=== PATIENT | female | born 1985 | race Caucasian/White ===

== ENCOUNTER → 2016-08-16 | Outpatient (CLI) | payer BC ==
[~2016-08-16] MED LIST: BIRTH CONTROL; TRAM50TA2 PO
== END ==
LOC: LAB 14:23
PROVIDERS: ATTEND Obstetrics & Gynecology
DX: Z32.01 Encounter for pregnancy test, result positive (principal)
CPT/HCPCS: 36415; 84144; 84702

== ENCOUNTER → 2016-12-03 | Outpatient (CLI) | payer BC ==
--- NOTE | 2016-12-03 12:48 | Diagnostic Imaging Report ---
OB ultrasound. INDICATION: survey. Findings: heart rate is 135 beats per minute. The placenta is posterior. There is no placenta previa. survey demonstrate unremarkable appearance of the spine, no ventriculomegaly, the urinary bladder appears unremarkable. The four-chamber view appears unremarkable. There is suggestion of 2 umbilical arteries around the urinary bladder. The stomach appear normal. Cord insertion is not seen. There is no hydronephrosis or cystic mass at the level of the kidney. The cervix demonstrates minimal amount of fluid in its proximal aspect within the endocervical canal, otherwise the cervix appears to be closed. It is 4 CM in length. The growth parameters are: Biparietal diameter: 20 weeks 2 days Head circumference: 20 weeks 3 days Abdominal circumference: 20 week 5 day Femur length: 21 week and 3 days These average at: 20 weeks and 5 days This is within normal limits for gestational age of 21 weeks and 4 days based on assigned TONY of 04/11/2017 by first trimester ultrasound reportedly provided Impression: 1. The cord insertion is not seen. Followup study within 2 weeks to reevaluate is recommended. 2. Tiny amount of fluid is seen in the endocervix. The cervix however remains closed. Reassessment on followup is recommended. Dictated by: Dictated on workstation # [id number]
== END ==
LOC: RAD 09:47
PROVIDERS: ATTEND Obstetrics & Gynecology
DX: Z36 Encounter for antenatal screening of mother (principal); Z3A.20 20 weeks gestation of pregnancy
CPT/HCPCS: 76805

== ENCOUNTER → 2017-01-14 | Outpatient (CLI) | payer BC ==
--- NOTE | 2017-01-14 14:47 | Diagnostic Imaging Report ---
INDICATION: Incomplete survey. Re-evaluate cord insertion. TECHNIQUE: Multiple real-time grayscale images were obtained over the gravid uterus. COMPARISON: 12/03/2016. FINDINGS: The heart rate is 133 BPM. The placenta is posterior with no placenta previa. The cord insertion is still not well seen. Adequate amniotic fluid is noted. The transvaginal view demonstrates a cervical length of 4 cm. The cervix is closed. IMPRESSION: Unfortunately, the cord insertion is still not well seen. Dictated by: Dictated on workstation # [id number]
== END ==
LOC: RAD 10:16
PROVIDERS: ATTEND Obstetrics & Gynecology
DX: Z36 Encounter for antenatal screening of mother (principal)
CPT/HCPCS: 76816

== ENCOUNTER 2017-04-10 03:00 | Inpatient (IN) | payer MEDICAID ==
[2017-04-10] VITALS (42 sets, daily range): BP systolic 96–158; BP diastolic 57–90
[~2017-04-10] VITALS: Ht 160 cm; Wt 86.8 kg
[2017-04-10] MEDS ORDERED: AMPICILLIN INJECTION 2,000 MG in NS (IVPB) 50 ML IV SCH (03:32)
[2017-04-10] MEDS ORDERED: NS (IVPB) 50 ML ONE (03:37)
[2017-04-10] MEDS ORDERED: AMPICILLIN 2000 MG INJECTION (IM/IV) ONE (03:37)
[2017-04-10 03:39] LABS: PH,URINE 6.5 (5-9)
[2017-04-10 03:40] LABS: BILIRUBIN,URINE NEGATIVE (NEGATIVE); KETONES,URINE NEGATIVE (NEGATIVE); LEUKOCYTE ESTERASE ,URINE 3+ (NEGATIVE); NITRITE,URINE NEGATIVE (NEGATIVE); PROTEIN,URINE NEGATIVE (NEGATIVE); UROBILINOGEN,URINE NORMAL (NORMAL)
[2017-04-10] MEDS: D5 LR IV SOLUTION 1,000 ML IV SCH ×3 (03:48→23:32)
[2017-04-10 03:59] LABS: BASOPHILS % (AUTO) 0 % (0-10); EOSINOPHILS % (AUTO) 0 % (0-10); LYMPHOCYTES # (AUTO) 2.4 X 10^3 (1.0-4.0); LYMPHOCYTES % (AUTO) 30 % (12-44); MEAN CORPUSCULAR HEMOGLOBIN 27 PG (25-34); MEAN CORPUSCULAR HGB CONC 32 G/DL (32-36); MEAN CORPUSCULAR VOLUME 83 FL (80-99); MEAN PLATELET VOLUME 10.1 FL (7.4-10.4); MONOCYTES # (AUTO) 0.7 X 10^3 (0.0-1.0); MONOCYTES % (AUTO) 9 % (0-12); NEUTROPHILS # (AUTO) 4.9 X 10^3 (1.8-7.8); NEUTROPHILS % (AUTO) 61 % (42-75); PLATELET COUNT 286 10^3/uL (130-400); RED BLOOD COUNT 3.76 10^6/uL (4.35-5.85); RED CELL DISTRIBUTION WIDTH 13.9 % (10.0-14.5); WHITE BLOOD COUNT 8.1 10^3/uL (4.3-11.0)
[2017-04-10] MEDS ORDERED: FAMO-119 PO (05:48)
[2017-04-10] MEDS ORDERED: DOCO200C4 PO (05:48)
[2017-04-10] MEDS: AMPICILLIN INJECTION 1,000 MG in NS (IVPB) 50 ML IV SCH ×2 (08:31→12:15)
[2017-04-10] MEDS ORDERED: LACTATED RINGERS 1,000 ML IV ONE (08:38)
[2017-04-10] MEDS ORDERED: SUFENTA 0.6MCG/ML BUPIVA 0.125 100 ML ONE (08:38)
--- NOTE | 2017-04-10 09:27 | History & Physical-OB ---
OB - Chief Complaint & HPI Date/Time Date of Admission: Date of Admission: Apr 10, 2017 at 8:47 am Time Seen by Provider: 08:35 Chief Complaint/History OB-Reason for Admission/Chief: Onset of Labor Hx : 1 Hx Para: 0 Expected Date of Delivery: Apr 11, 2017 Gestational Age in Weeks: 39 Gestational Age in Days: 6 Admission Nurse Assessment Rev: Yes History of Labs A pos Antibody neg RI RPR NR HBsAg NR HIV NR GC neg GBS pos Allergies and Home Medications Allergies Coded Allergies: No Known Drug Allergies (Unverified , 04/10/17) Home Medications Docosahexanoic Acid 200 Mg Capsule, 200 MG PO DAILY, (Reported) Famotidine 20 Mg Tablet, 20 MG PO BID, (Reported) OB - History Hx of Present Care: Yes Ultrasounds: Normal mid trimester US Obstetrical Complications: None Medical Complications: None Obstetrical History Hx : 1 Delivery History Hx Blood Disorders: No Patient Past Medical History n/a Social History/Family History Recent Infectious Disease Expo: No Immunizations Tetanus Booster (TDap): More than 5yrs OB - Admission Exam Physical Exam Date Seen by Provider: Apr 10, 2017 Time Seen by Provider: 08:45 Vitals: Vital Signs 04/10/17 03:20 Temp 97.5 Pulse 93 Resp 16 B/P (MAP) 120/82 O2 Delivery Room Air HEENT: NCAT Heart: Rhythm Normal Lungs: Clear Abdomen: Gravid Extremities: Normal Reflexes: Normal Cervical Dilatation: 4cm Effacement: 100% Station: -1 Membranes: Intact Heart Rate: 130's Accelerations: Accelerations Present Decelerations: No Decelerations Short Term Variability: Present Human Resource Adviser Variability: Average (6-25) Contractions on Admission: < 5 Minutes Apart Intensity: Moderate Labs Laboratory Tests Test 04/10/17 03:10 04/10/17 03:40 Range/Units Urine Color YELLOW Urine Clarity CLEAR Urine pH 6.5 5-9 Urine Specific [place]roid 1.005 L 1.016-1.022 Urine Protein NEGATIVE NEGATIVE Urine Glucose (UA) NEGATIVE NEGATIVE Urine Ketones NEGATIVE NEGATIVE Urine Nitrite NEGATIVE NEGATIVE Urine Bilirubin NEGATIVE NEGATIVE Urine Urobilinogen NORMAL NORMAL MG/DL Urine Leukocyte Esterase 3+ H NEGATIVE Urine RBC (Auto) 1+ H NEGATIVE Urine RBC 2-5 H /HPF Urine WBC 10-25 H /HPF Urine Squamous Epithelial Cells 2-5 /HPF Urine Crystals NONE /LPF Urine Bacteria TRACE /HPF Urine Casts NONE /LPF Urine Mucus NEGATIVE /LPF Urine Culture Indicated YES White Blood Count 8.1 4.3-11.0 10^3/uL Red Blood Count 3.76 L 4.35-5.85 10^6/uL Hemoglobin 10.0 L 11.5-16.0 G/DL Hematocrit 31 L 35-52 % Mean Corpuscular Volume 83 80-99 FL Mean Corpuscular Hemoglobin 27 25-34 PG Mean Corpuscular Hemoglobin Concent 32 32-36 G/DL Red Cell Distribution Width 13.9 10.0-14.5 % Platelet Count 286 130-400 10^3/uL Mean Platelet Volume 10.1 7.4-10.4 FL Neutrophils (%) (Auto) 61 42-75 % Lymphocytes (%) (Auto) 30 12-44 % Monocytes (%) (Auto) 9 0-12 % Eosinophils (%) (Auto) 0 0-10 % Basophils (%) (Auto) 0 0-10 % Neutrophils # (Auto) 4.9 1.8-7.8 X 10^3 Lymphocytes # (Auto) 2.4 1.0-4.0 X 10^3 Monocytes # (Auto) 0.7 0.0-1.0 X 10^3 Eosinophils # (Auto) 0.0 0.0-0.3 10^3/uL Basophils # (Auto) 0.0 0.0-0.1 10^3/uL OB - Assessment/Plan/Diagnosis Assessment Assessment: active labor Plan Plan: Expectant Management Other Plan Plan for AROM, pitocin if needed. Patient to have epidural at her discretion Discharge Diagnosis Diagnosis: 31 yo @ 39.6 Active labor GBS + JULIOSTORM Apr 10, 2017 9:27 am
[2017-04-10] MEDS ORDERED: LACTATED RINGERS 1,000 ML IV SCH (09:43)
[2017-04-10] MEDS ORDERED: diphenhydrAMINE 50 MG/ML INJ (BENADRYL) IV PRN (09:45)
[2017-04-10] MEDS ORDERED: ONDANSETRON 4 MG/2 ML (SDV) Z0FRAN IV PRN (09:45)
[2017-04-10] MEDS ORDERED: METOCLOPRAMIDE INJ 10 MG/2 ML (REGLAN) IV PRN (09:45)
[2017-04-10] MEDS ORDERED: NALOXONE 0.4 MG/ML 1 ML (NARCAN) VIAL IV PRN ×2 (09:45)
[2017-04-10] MEDS ORDERED: EPIDURAL (SUFENTA 0.6MCG/ML BUPIVA 0.125%) 100 ML BAG EPI SCH (09:45)
[2017-04-10] MEDS ORDERED: OXYTOCIN/NORMAL SALINE 500 ML IV SCH ×2 (12:06→16:15)
[2017-04-10] MEDS ORDERED: LIDOCAINE/EPI 2% 1:200,00 (XYLOCAINE) 10 ML VIAL ONE ×2 (15:06→15:07)
[2017-04-10] MEDS ORDERED: DIBUCAINE (NUPERCAINAL) 1% OINT 30 GM TOP PRN (16:15)
[2017-04-10] MEDS ORDERED: MEASLES,MUMPS,RUBELLA 1 EA INJ SQ ONE (16:15)
[2017-04-10] MEDS ORDERED: WITCH HAZEL(TUCKS) 40 EA JAR TOP PRN (16:15)
[2017-04-10] MEDS ORDERED: TETANUS,DIPTH,PERTUSS P/F (BOOSTRIX) 0.5 ML VIAL IM ONE (16:15)
[2017-04-10] MEDS ORDERED: BENZOCAINE/MENTHOL (DERMOPLAST) 56 ML CAN TP PRN (16:15)
--- NOTE | 2017-04-10 17:22 | OB Labor & Delivery Record ---
L&D History Date of Service Date of Service: Apr 10, 2017 History Expected Date of Delivery: Mar 11, 2018 Gestational Age in Weeks: 39 Hx : 1 Hx Para: 0 Complications Events: Routine care Operative Indications (Cesarea: N/A-Vaginal Delivery Intrapartal Events: None Other Complications 4th degree laceration. L&D Stage1 Stage One Onset of Labor - Date: Apr 10, 2017 Monitors and Tracing Monitor Mode: External Heart Rate: 125 Monitor Decelerations: None Station: -2 Die Keeper Variability: Average (6-10) Short Term Variability: Present Vital Signs VS - Last 72 Hours, by Label 04/10/17 04/10/17 04/10/17 04/10/17 03:20 08:30 09:05 09:10 Temp 97.5 97.7 Pulse 93 81 99 86 Resp 16 18 18 18 B/P (MAP) 120/82 117/81 114/76 139/86 Pulse Ox 98 98 O2 Delivery Room Air Room Air Room Air Room Air 04/10/17 04/10/17 04/10/17 04/10/17 09:12 09:15 09:20 09:25 Pulse 88 88 86 86 Resp 18 18 18 18 B/P (MAP) 142/90 134/86 126/85 129/79 Pulse Ox 100 100 98 98 O2 Delivery Room Air Room Air Room Air Room Air 04/10/17 04/10/17 04/10/17 04/10/17 09:30 09:35 09:40 09:45 Pulse 88 89 93 80 Resp 18 18 18 18 B/P (MAP) 115/75 117/81 120/74 110/76 Pulse Ox 97 99 99 99 O2 Delivery Room Air Room Air Room Air Room Air 04/10/17 04/10/17 04/10/17 04/10/17 09:55 10:00 10:15 10:30 Pulse 83 86 87 77 Resp 18 18 18 18 B/P (MAP) 110/76 118/76 109/75 96/59 Pulse Ox 99 99 98 98 O2 Delivery Room Air Room Air Room Air Room Air 04/10/17 04/10/17 04/10/17 04/10/17 10:45 11:00 11:15 11:30 Pulse 78 69 74 82 Resp 18 18 18 18 B/P (MAP) 122/73 118/76 112/73 113/81 Pulse Ox 96 96 96 98 O2 Delivery Room Air Room Air Room Air Room Air 04/10/17 04/10/17 04/10/17 04/10/17 12:00 12:15 12:30 12:45 Pulse 81 77 88 75 Resp 18 18 18 18 B/P (MAP) 110/74 113/70 115/73 115/86 Pulse Ox 97 98 98 98 O2 Delivery Room Air Room Air Room Air Room Air 04/10/17 04/10/17 04/10/17 04/10/17 15:30 15:45 16:00 16:15 Pulse 114 100 99 113 Resp 18 18 18 20 B/P (MAP) 138/63 129/66 119/59 114/57 O2 Delivery Room Air Room Air Room Air Room Air 04/10/17 16:33 Pulse 102 Resp 20 B/P (MAP) 106/58 O2 Delivery Room Air Fundal Ht/Cervical Dilatation Uterus Position: -2 Rupture of Membranes Spontaneous Ruture of Membrane: No Amniotic Membrane Rupture Time: 0840 Vaginal Bleeding Description: Normal Show Induction/Anesthesia Epidural Cath Placement - Time: 928 Progress/Notes Patient presented and progressed without any augmentation to approximate 5-6 cm at which point AROM was performed and epidural was obtained. The patient continued to contract irregularly after this was done however no cervical changes noted so Pitocin low dose was started for labor augmentation. After which the patient rapidly progressed to complete and +2 station L&D Stage2 Stage Two Stage II Date: Apr 10, 2017 Monitors and Tracing Monitor Mode: External Heart Rate: 125 Monitor Accelerations: Uniform Monitor Decelerations: Variable Die Keeper Variability: Average (6-10) Short Term Variability: Present Position: Right Occiput Anterior Presentation: Vertex Cord Descript/Complications Cord Vessel Description: 3 Vessels Delivery Type Infant Delivery Method: Spontaneous Vaginal Anterior Shoulder: Right Episiotomy/Perineal Laceration Laceraction(s)/Extensions: Yes Episiotomy Description: Midline, 4th Degree Location Modifier: Medial Degree (describe repair) A midline episiotomy was cut at the time of the of the head due to concern for massive trauma with delivery. The infant's head was delivered through the episiotomy without difficulty, however, there was difficulty delivering the shoulders, a modified Boubacar maneuver had to be performed to rotate the infant's shoulder to a 45 angle to allow passage under the maternal pubic bone. After this was done was when I noted the laceration had extended in the process of doing this. The remainder of the was delivered and brought out onto maternal abdomen. Where the cord was doubly clamped and cut and the infant was bulb suctioned. At which point I noted the fourth degree laceration was repaired in the normal fashion. There was a double layer mucosal closure to the external sphincter using 3-0 Rapide Vicryl. I then reapproximated the sphincter muscle using 2-0 Vicryl suture and [id number] interrupted fashions. A crown stitch was used to reapproximate the perineal body and bringing together the bulbocavernosus muscles. The remainder of the repair was done in normal fashion. Condition of Infant Delivery 1 minute Comment: 8 5 minute Comment: 9 Notes Live female infant weight 8lbs 3oz Condition of Condition of : Living Exam: No Observed Abnormalities Resuscitation Resuscitation: N/A - Spontaneous Resp L&D Stage3 Stage Three Stage III Date: Apr 10, 2017 Pictocin Pitocin Administration mu/min: 2 Pitocin ml/hr: 2 Pitocin Administration Comment: 30 mu wide open at delivery of placenta Placenta Delivery Placenta Delivery: Spontaneous Delivery Summary Summary blood loss >1000ml: No Vaginal blood loss >500ml: No 450 Attending at delivery: Storm Kim DO Condition of Delivery Examined: Cervix Examined, Uterus Explored Post Hemorrhage: No Condition of Mother stable Condition of (s) stable STORM KIM DO Apr 10, 2017 5:22 pm
[2017-04-10] MEDS: IBUPROFEN 600 MG (MOTRIN) TAB PO SCH (17:54)
[2017-04-10] MEDS: CALCIUM CARBONATE 500 MG (TUMS) TAB.CHEW PO PRN (17:55)
[2017-04-10] MEDS: CATHETER FLUSH 10 ML SYR IV SCH (21:10)
[2017-04-10] MEDS: DOCUSATE SODIUM 100 MG (COLACE) CAP PO SCH (21:10)
[2017-04-11] VITALS: BP 117/72
[2017-04-11] MEDS: IBUPROFEN 600 MG (MOTRIN) TAB PO SCH ×5 (00:31→22:02)
[2017-04-11 04:00] VITALS: BP 114/76
[2017-04-11 06:36] LABS: BASOPHILS % (AUTO) 0 % (0-10); EOSINOPHILS # (AUTO) 0.1 10^3/uL (0.0-0.3); EOSINOPHILS % (AUTO) 1 % (0-10); LYMPHOCYTES # (AUTO) 2.5 X 10^3 (1.0-4.0); LYMPHOCYTES % (AUTO) 21 % (12-44); MEAN CORPUSCULAR HEMOGLOBIN 26 PG (25-34); MEAN CORPUSCULAR HGB CONC 31 G/DL (32-36); MEAN CORPUSCULAR VOLUME 84 FL (80-99); MEAN PLATELET VOLUME 10.2 FL (7.4-10.4); MONOCYTES # (AUTO) 0.7 X 10^3 (0.0-1.0); MONOCYTES % (AUTO) 6 % (0-12); NEUTROPHILS # (AUTO) 8.5 X 10^3 (1.8-7.8); NEUTROPHILS % (AUTO) 72 % (42-75); PLATELET COUNT 216 10^3/uL (130-400); RED BLOOD COUNT 2.73 10^6/uL (4.35-5.85); RED CELL DISTRIBUTION WIDTH 13.7 % (10.0-14.5); WHITE BLOOD COUNT 11.8 10^3/uL (4.3-11.0)
[2017-04-11] MEDS: D5 LR IV SOLUTION 1,000 ML IV SCH ×2 (06:52→13:55)
[2017-04-11] MEDS: FERROUS SULF 325 MG (IRON) TAB PO SCH (08:21)
[2017-04-11] MEDS: PRENATAL VITAMIN 1 EA TAB PO SCH (08:21)
[2017-04-11] MEDS: DOCUSATE SODIUM 100 MG (COLACE) CAP PO SCH ×2 (08:22→20:28)
[2017-04-11] MEDS: APAP 300 MG/CODEINE 30 MG (TYLENOL #3) TAB PO PRN ×4 (08:24→22:02)
[2017-04-11] MEDS ORDERED: ACET1TAB43 PO (08:37)
[2017-04-11] MEDS ORDERED: BENZ56AE2 TP (08:37)
[2017-04-11] MEDS ORDERED: FERR-74 PO (08:37)
[2017-04-11] MEDS ORDERED: IBUP-1773 PO (08:37)
[2017-04-11] MEDS ORDERED: DOCU100C37 PO (08:37)
--- NOTE | 2017-04-11 08:37 | Discharge Inst-Women's Service ---
Discharge Inst-Women's Serv Depart Medication/Instructions New, Converted or Re-Newed RX: RX on Chart Consults/Follow Up Additional Follow Up: Yes Orders/Referrals Dr. Kim in 6 weeks Activity Activity: Activity as Tolerated Driving Instructions: No Driving for 1 Week NO SMOKING: NO SMOKING Nothing Inside Vagina: No Douching, No [place], No Tampons Diet Discharge Diet: No Restrictions Symptoms to Report to : Bleeding Excessive, Pain Increased, Fever Over 101 Degrees F, Vaginal Bleeding Increase, Questions/Concerns For Any Problems or Questions: Contact Your Physician Skin/Wound Care Bathing Instructions: Shower (x 2 weeks, or sitz baths only) STORM KIM DO Apr 11, 2017 8:37 am
--- NOTE | 2017-04-11 10:01 | Progress Note-Standard ---
Standard Progress Note Progress Notes/Assess & Plan Date Seen by Provider: Apr 11, 2017 Time Seen by Provider: 09:15 Progress/Assessment & Plan Patient is doing well day one normal vaginal delivery with fourth degree laceration repair. The patient reports soreness down the perineum. She is using dermoplast for discomfort and pain medication seemed to be helping with the discomfort. She is ambulating and voiding freely. She has not yet had a bowel movement but has been encouraged to take stool softeners. She reports lochia is light, and is attempting to breast-feed as well. Vital Sign - Last 24 Hours 04/10/17 04/10/17 04/10/17 04/10/17 10:15 10:30 10:45 11:00 Pulse 87 77 78 69 Resp 18 18 18 18 B/P (MAP) 109/75 96/59 122/73 118/76 Pulse Ox 98 98 96 96 O2 Delivery Room Air Room Air Room Air Room Air 04/10/17 04/10/17 04/10/17 04/10/17 11:15 11:30 12:00 12:15 Pulse 74 82 81 77 Resp 18 18 18 18 B/P (MAP) 112/73 113/81 110/74 113/70 Pulse Ox 96 98 97 98 O2 Delivery Room Air Room Air Room Air Room Air 04/10/17 04/10/17 04/10/17 04/10/17 12:30 12:45 13:15 13:30 Pulse 88 75 70 70 Resp 18 18 18 18 B/P (MAP) 115/73 115/86 109/73 121/67 Pulse Ox 98 98 O2 Delivery Room Air Room Air 04/10/17 04/10/17 04/10/17 04/10/17 13:45 14:00 14:15 14:30 Temp 98.5 Pulse 70 75 71 82 Resp 18 18 18 18 B/P (MAP) 112/74 114/66 104/59 123/65 O2 Delivery Non Rebreather Non Rebreather Room Air O2 Flow Rate 15.00 15.00 04/10/17 04/10/17 04/10/17 04/10/17 14:45 15:00 15:15 15:30 Pulse 96 100 126 114 Resp 18 18 18 18 B/P (MAP) 158/88 135/71 142/74 138/63 O2 Delivery Room Air Room Air Room Air Room Air 04/10/17 04/10/17 04/10/17 04/10/17 15:30 15:45 16:00 16:15 Pulse 114 100 99 113 Resp 18 18 18 20 B/P (MAP) 138/63 129/66 119/59 114/57 O2 Delivery Room Air Room Air Room Air Room Air 04/10/17 04/10/17 04/10/17 04/10/17 16:33 16:45 17:00 17:15 Pulse 102 86 93 89 Resp 20 20 20 20 B/P (MAP) 106/58 102/60 107/71 110/78 O2 Delivery Room Air Room Air Room Air Room Air 04/10/17 04/11/17 04/11/17 20:00 00:00 04:00 Temp 97.4 97.8 98.4 Pulse 84 94 70 Resp 18 16 18 B/P (MAP) 106/68 117/72 114/76 Pulse Ox 99 98 98 O2 Delivery Room Air Room Air Room Air Uterine fundus firm and palpated below the umbilicus Laboratory Tests Test 04/11/17 06:20 Range/Units White Blood Count 11.8 H 4.3-11.0 10^3/uL Red Blood Count 2.73 L 4.35-5.85 10^6/uL Hemoglobin 7.2 #L 11.5-16.0 G/DL Hematocrit 23 L 35-52 % Mean Corpuscular Volume 84 80-99 FL Mean Corpuscular Hemoglobin 26 25-34 PG Mean Corpuscular Hemoglobin Concent 31 L 32-36 G/DL Red Cell Distribution Width 13.7 10.0-14.5 % Platelet Count 216 130-400 10^3/uL Mean Platelet Volume 10.2 7.4-10.4 FL Neutrophils (%) (Auto) 72 42-75 % Lymphocytes (%) (Auto) 21 12-44 % Monocytes (%) (Auto) 6 0-12 % Eosinophils (%) (Auto) 1 0-10 % Basophils (%) (Auto) 0 0-10 % Neutrophils # (Auto) 8.5 H 1.8-7.8 X 10^3 Lymphocytes # (Auto) 2.5 1.0-4.0 X 10^3 Monocytes # (Auto) 0.7 0.0-1.0 X 10^3 Eosinophils # (Auto) 0.1 0.0-0.3 10^3/uL Basophils # (Auto) 0.0 0.0-0.1 10^3/uL Diagnosis: day one normal vaginal delivery Status post fourth degree laceration repair Acute blood loss anemia superimposed on anemia Plan: Continue routine post care Encourage high fiber and soft diet as well as stool softeners to promote healing of fourth degree laceration Anticipate discharge tomorrow if patient continues to improve STORM KIM DO Apr 11, 2017 10:01 am
[2017-04-11 12:00] VITALS: BP 112/72
[2017-04-11] MEDS: CATHETER FLUSH 10 ML SYR IV SCH ×2 (13:36→22:26)
[2017-04-11] MEDS: CALCIUM CARBONATE 500 MG (TUMS) TAB.CHEW PO PRN ×2 (15:21→20:28)
[2017-04-11 16:00] VITALS: BP 115/75
--- NOTE | 2017-04-11 16:16 | Anesthesia-Regional Post-Op ---
Regional Patient Condition Mental Status: Alert, Oriented x3 Circulation: Same as Pre-Op Headache: Absent Sensation: Full Recovery Motor Block: Absent Post Op Complications Complications None Follow Up Care/Instructions Patient Instructions None needed. Anesthesia/Patient Condition Patient is doing well, no complaints, stable vital signs, no apparent adverse anesthesia problems. QUE CASTRO DO Apr 11, 2017 16:16
[2017-04-11 20:43] VITALS: BP 107/73
[2017-04-12 02:40] VITALS: BP 112/70
[2017-04-12] MEDS: IBUPROFEN 600 MG (MOTRIN) TAB PO SCH ×2 (04:40→11:32)
[2017-04-12] MEDS: APAP 300 MG/CODEINE 30 MG (TYLENOL #3) TAB PO PRN ×2 (04:40→09:45)
--- NOTE | 2017-04-12 08:48 | Progress Note-Standard ---
Standard Progress Note Progress Notes/Assess & Plan Date Seen by Provider: Apr 12, 2017 Time Seen by Provider: 08:15 Progress/Assessment & Plan Patient is doing well day two normal vaginal delivery with fourth degree laceration repair. The patient reports continued soreness down the perineum. She is using dermoplast for discomfort and pain medication seemed to be helping with the discomfort. She is ambulating and voiding freely. She has not yet had a bowel movement but has been encouraged to take stool softeners. She reports lochia is light, and is attempting to breast-feed as well. Vital Sign - Last 24 Hours 04/11/17 04/11/17 04/11/17 04/12/17 12:00 16:00 20:43 02:40 Temp 97.4 97.4 97.4 97.7 Pulse 87 79 83 96 Resp 18 22 18 18 B/P (MAP) 112/72 115/75 107/73 112/70 Pulse Ox 100 98 100 96 O2 Delivery Room Air Room Air Room Air Room Air O2 Flow Rate 15.00 15.00 Diagnosis: day two normal vaginal delivery Status post fourth degree laceration repair Acute blood loss anemia superimposed on anemia Plan: Continue routine post care Encourage high fiber and soft diet as well as stool softeners to promote healing of fourth degree laceration Anticipate discharge today STORM KIM DO Apr 12, 2017 8:48 am
[2017-04-12 09:00] VITALS: BP 108/67
[2017-04-12] MEDS: PRENATAL VITAMIN 1 EA TAB PO SCH (09:44)
[2017-04-12] MEDS: FERROUS SULF 325 MG (IRON) TAB PO SCH (09:44)
[2017-04-12] MEDS: DOCUSATE SODIUM 100 MG (COLACE) CAP PO SCH (09:44)
[2017-04-12 14:20] VITALS: BP 108/67
== END 2017-04-12 14:20 | disposition home or self-care (01) | DRG 775 ==
LOC: WSo 03:00 → LDRP 03:01 → WSo 08:46 → LDRP 08:47
PROVIDERS: ADMIT Obstetrics & Gynecology; ATTEND Obstetrics & Gynecology
PROC: 10E0XZZ Delivery of Products of Conception, External Approach (ICD-10-PCS; principal; 2017-04-10)
PROC: 0DQP0ZZ Repair Rectum, Open Approach (ICD-10-PCS; 2017-04-10)
PROC: 0W8NXZZ Division of Female Perineum, External Approach (ICD-10-PCS; 2017-04-10)
DX: O70.3 Fourth degree perineal laceration during delivery (principal); O99.824 Streptococcus B carrier state complicating childbirth; O90.81 Anemia of the puerperium; D62 Acute posthemorrhagic anemia; Z37.0 Single live birth; Z3A.39 39 weeks gestation of pregnancy
CPT/HCPCS: 36415; 81000; 85025; 86850; 86900; 86901; 87088; 99212

== ENCOUNTER → 2018-06-05 | Outpatient (CLI) | payer BC, MEDICAID ==
[~2018-06-05] MED LIST changes: +ACET1TAB43 PO; +BENZ56AE2 TP; +DOCO200C4 PO; +DOCU100C37 PO; +FAMO-119 PO; +FERR325T18 PO; +IBUP-1773 PO
--- NOTE | 2018-06-05 13:08 | Diagnostic Imaging Report ---
INDICATION: anatomy survey. TECHNIQUE: Multiple real-time grayscale images were obtained over the gravid uterus. COMPARISON: None FINDINGS: The cervix is closed and measures 5 cm in length. Single live intrauterine is in transverse lie. Due to advanced gestational age, maternal adnexa are poorly visualized. Placenta is anteriorly located and there is no previa. Survey was performed and the following structures are visualized and normal: Stomach, four-chamber heart, umbilical cord insertion, kidneys, three-vessel cord, spine, cerebral ventricles, cerebellum, cisterna magna and all four extremities. Biometrical measurements are as follows: Biparietal 4.59 cm, age 20 weeks 0 days. Head circumference 16.61 cm, age 19 weeks 3 days. Abdominal circumference 15.27 cm, age 20 weeks 4 days. Femur length 3.21 cm, age 20 weeks 0 days. Sonographic estimate age: 20 weeks 0 days. Sonographic estimated date of delivery: 10/23/2018. Estimated Weight: 335 gm (+/- 49 gm). LMP percentile: 79%. heart rate: 142 beats per minute. number: 1 of 1. IMPRESSION: 1. Single live intrauterine with normal anatomy survey. Dictated by: Dictated on workstation # [id number]
== END ==
LOC: RAD 09:46
PROVIDERS: ATTEND Obstetrics & Gynecology
DX: Z36.89 Encounter for other specified antenatal screening (principal); Z3A.20 20 weeks gestation of pregnancy
CPT/HCPCS: 76805

== ENCOUNTER 2018-10-07 15:18 | Inpatient (IN) | payer BC, MEDICAID ==
[~2018-10-07] VITALS: Ht 160 cm; Wt 77.6 kg
[2018-10-07] VITALS (38 sets, daily range): BP systolic 96–127; BP diastolic 51–85
--- NOTE | 2018-10-07 15:18 | NUR ---
VALARIE GENAO presented to unit via ambulation from ED, accompanied by , for IOL. Pt. weighed, gowned, voided, and to bed. EFHM and TOCO applied, VS taken. Pt. oriented to bed controls, call light, TV, heat, and A/C controls.
[2018-10-07] MEDS ORDERED: D5 LR IV SOLUTION 1,000 ML IV SCH (16:09)
[2018-10-07] MEDS ORDERED: AMPICILLIN FOR IV USE 2,000 MG in WATER (STERILE) FOR INJECTION 14.8 ML IV SCH (16:09)
[2018-10-07] MEDS ORDERED: D5 LR IV SOLUTION 1,000 ML IV ONE (16:11)
--- NOTE | 2018-10-07 16:19 | NUR ---
#18g IV to Lt. wrist x1 attempt by this RN. site patent, secured with opsite. pt tolerated well. D5LR @ 125cc/hr infusing via IV pump.
--- NOTE | 2018-10-07 16:38 | NUR ---
was given update on FHR. order received for pitocin protocol
[2018-10-07] MEDS ORDERED: OXYTOCIN/NORMAL SALINE 500 ML IV SCH ×2 (17:07→23:58)
[2018-10-07] MEDS ORDERED: OXYTOCIN/NORMAL SALINE 500 ML IV ONE (17:09)
[2018-10-07 17:10] LABS: BASOPHILS % (AUTO) 0 % (0-10); EOSINOPHILS % (AUTO) 0 % (0-10); HEMATOCRIT 34 % (35-52); HEMOGLOBIN 11.2 G/DL (11.5-16.0); LYMPHOCYTES # (AUTO) 1.8 X 10^3 (1.0-4.0); LYMPHOCYTES % (AUTO) 28 % (12-44); MEAN CORPUSCULAR HEMOGLOBIN 29 PG (25-34); MEAN CORPUSCULAR HGB CONC 33 G/DL (32-36); MEAN CORPUSCULAR VOLUME 89 FL (80-99); MEAN PLATELET VOLUME 9.8 FL (7.4-10.4); MONOCYTES # (AUTO) 0.4 X 10^3 (0.0-1.0); MONOCYTES % (AUTO) 7 % (0-12); NEUTROPHILS # (AUTO) 4.3 X 10^3 (1.8-7.8); NEUTROPHILS % (AUTO) 65 % (42-75); PLATELET COUNT 242 10^3/uL (130-400); RED CELL DISTRIBUTION WIDTH 14.2 % (10.0-14.5); WHITE BLOOD COUNT 6.6 10^3/uL (4.3-11.0)
[2018-10-07] MEDS ORDERED: FLU QUADRIvalent (5+ YOA) 2018-2019 (AFLURIA) 0.5 ML IM ONE (18:00)
[2018-10-07] MEDS ORDERED: SUFENTA 0.6MCG/ML BUPIVA 0.125 100 ML ONE (19:33)
--- NOTE | 2018-10-07 19:55 | History & Physical-OB ---
OB - Chief Complaint & HPI Date/Time Date of Admission: Date of Admission: Oct 07, 2018 at 15:18 Date seen by a Provider: Oct 07, 2018 Time Seen by a Provider: 15:00 Chief Complaint/History OB-Reason for Admission/Chief: Obstetrical Complication Hx : 2 Hx Para: 1 Gestational Age in Weeks: 37 Gestational Age in Days: 2 Other reason for admission: This patient presented to the office for regularly scheduled OB appointment, she thought she had a gush of fluid questionable for SROM on Friday, but reports that it has lightened up since then. On exam SVE, membranes could be palpated, but fundal height measuring 35 cm so US was done. MAGDALENA was measured and no 2 cm or larger pocket could be found. Due to oligo, suspicion for SROM as well as GBS + patient was sent up for delivery Admission Nurse Assessment Rev: Yes History of Labs A pos Antibody neg RI RPR NR HBsAg NR HIV NR GC neg GBS + Allergies and Home Medications Allergies Coded Allergies: No Known Drug Allergies (Unverified , 04/10/17) Home Medications Acetaminophen with Codeine 1 Each Tablet, 1-2 TAB PO Q4H PRN for PAIN-MODERATE Prescribed by: STORM KIM on 04/11/17 0837 Benzocaine/Menthol 56 Gm Aerosol, 0 ML TP UD PRN for PAIN- SEE INSTRUCTIONS Prescribed by: STORM KIM on 04/11/17 08 Docosahexanoic Acid 200 Mg Capsule, 200 MG PO DAILY, (Reported) Docusate Sodium 100 Mg Capsule, 100 MG PO BID Prescribed by: STORM KIM on 04/11/17 08 Famotidine 20 Mg Tablet, 20 MG PO BID, (Reported) Ferrous Sulfate 325 Mg Tablet, 325 MG PO DAILY@0800 Prescribed by: STORM KIM on 04/11/17 08 Ibuprofen 600 Mg Tablet, 600 MG PO Q6H Prescribed by: STORM KIM on 04/11/17 08 Patient Home Medication List Home Medication List Reviewed: Yes OB - History Hx of Present Care: Yes Ultrasounds: Abnormal US findings (oligo) Obstetrical Complications: None Medical Complications: Cardiovascular Delivery History Hx Blood Disorders: No Patient Past Medical History n/a Social History/Family History Alcohol Use: Denies Use Recreational Drug Use: No Immunizations Tetanus Booster (TDap): More than 5yrs OB - Admission Exam Physical Exam Vitals: Vital Signs 10/07/18 10/07/18 16:12 19:00 Temp 97.8 Pulse 88 Resp 18 B/P (MAP) 126/85 (99) O2 Delivery Room Air HEENT: NCAT Heart: Rhythm Normal Lungs: Clear Abdomen: Gravid Extremities: Normal Reflexes: Normal Cervical Dilatation: 1cm Effacement: 75% Station: -1 Membranes: Intact Heart Rate: 130's Accelerations: Accelerations Present Decelerations: No Decelerations Short Term Variability: Present Meat Boner Variability: Average (6-25) Contractions on Admission: 6-10 Minutes Apart Labs Laboratory Tests Test 10/07/18 16:36 Range/Units White Blood Count 6.6 4.3-11.0 10^3/uL Red Blood Count 3.82 L 4.35-5.85 10^6/uL Hemoglobin 11.2 L 11.5-16.0 G/DL Hematocrit 34 L 35-52 % Mean Corpuscular Volume 89 80-99 FL Mean Corpuscular Hemoglobin 29 25-34 PG Mean Corpuscular Hemoglobin Concent 33 32-36 G/DL Red Cell Distribution Width 14.2 10.0-14.5 % Platelet Count 242 130-400 10^3/uL Mean Platelet Volume 9.8 7.4-10.4 FL Neutrophils (%) (Auto) 65 42-75 % Lymphocytes (%) (Auto) 28 12-44 % Monocytes (%) (Auto) 7 0-12 % Eosinophils (%) (Auto) 0 0-10 % Basophils (%) (Auto) 0 0-10 % Neutrophils # (Auto) 4.3 1.8-7.8 X 10^3 Lymphocytes # (Auto) 1.8 1.0-4.0 X 10^3 Monocytes # (Auto) 0.4 0.0-1.0 X 10^3 Eosinophils # (Auto) 0.0 0.0-0.3 10^3/uL Basophils # (Auto) 0.0 0.0-0.1 10^3/uL OB - Assessment/Plan/Diagnosis Assessment Assessment: induction of labor Admission Dx 33 yo @ 37.2 Indeterminate ROM, with Oligohydramnios GBS + Admission Status: Inpatient Order (span 2 midnights) Reason for Inpatient Admission: Induction of labor at term Plan Plan: Induction Induction Method: per Pitocin Protocol STORM KIM DO Oct 07, 2018 19:55
[2018-10-07] MEDS ORDERED: fentaNYL INJECTION 100 MCG/2 ML AMP ONE (20:12)
[2018-10-07] MEDS ORDERED: BUPIVACAINE 0.25% 30 ML (SENSORCAINE) VIAL ONE (20:12)
[2018-10-07] MEDS ORDERED: AMPICILLIN FOR IV USE 1,000 MG in WATER (STERILE) FOR INJECTION 7.4 ML IV SCH (20:15)
--- NOTE | 2018-10-07 20:35 | NUR ---
José Ward CHECKERER HAND here for epidural placement. Procedure explained, consent reviewed and signed by anesthesia. Questions answered to patient's satisfaction. Time out taken to verify correct patient/procedure. Patient up to side of bed, assisted into sitting position. Betadine prep done x3 and sterile drape applied. Local done, see anesthesia record. Test dose given, see anesthesia record for drug and dosage. Epidural catheter secured in place. Epidural placement complete. Assisted back into bed, monitors adjusted. Epidural dosed, see anesthesia record. Epidural of Sufenta/Bupvicaine @___12___cc/hr stated per pump. Patient tolerated procedure well.
[2018-10-07] MEDS ORDERED: LACTATED RINGERS 1,000 ML IV SCH (20:53)
[2018-10-07] MEDS ORDERED: EPIDURAL (SUFENTA 0.6MCG/ML BUPIVA 0.125%) 100 ML BAG EPI PRN (21:00)
[2018-10-07] MEDS ORDERED: ONDANSETRON 4 MG/2 ML (SDV) Z0FRAN IV PRN (21:00)
[2018-10-07] MEDS ORDERED: METOCLOPRAMIDE INJ 10 MG/2 ML (REGLAN) IV PRN (21:00)
[2018-10-07] MEDS ORDERED: diphenhydrAMINE 50 MG/ML INJ (BENADRYL) IV PRN (21:00)
[2018-10-07] MEDS ORDERED: NALOXONE 0.4 MG/ML 1 ML (NARCAN) VIAL IV PRN ×2 (21:00)
[2018-10-07] MEDS ORDERED: ONDANSETRON 4 MG/2 ML (SDV) Z0FRAN ONE (21:30)
[2018-10-07] MEDS ORDERED: CATHETER FLUSH 10 ML SYR IV SCH (22:00)
[2018-10-07] MEDS ORDERED: LIDOCAINE/EPI 2% 1:200,00 (XYLOCAINE) 10 ML VIAL ONE (23:09)
[2018-10-08] VITALS (12 sets, daily range): BP systolic 98–119; BP diastolic 56–74
[2018-10-08] MEDS ORDERED: DIBUCAINE (NUPERCAINAL) 1% OINT 30 GM TOP PRN
[2018-10-08] MEDS ORDERED: MEASLES,MUMPS,RUBELLA 1 EA INJ SQ ONE
[2018-10-08] MEDS ORDERED: TETANUS,DIPTH,PERTUSS P/F (BOOSTRIX) 0.5 ML VIAL IM ONE
[2018-10-08] MEDS ORDERED: BENZOCAINE/MENTHOL (DERMOPLAST) 56 ML CAN TP PRN
[2018-10-08] MEDS ORDERED: WITCH HAZEL(TUCKS) 40 EA JAR TOP PRN
--- NOTE | 2018-10-08 00:04 | OB Labor & Delivery Record ---
L&D History Date of Service Date of Service: Oct 08, 2018 History Expected Date of Delivery: Oct 27, 2018 Gestational Age in Weeks: 37 Hx : 2 Hx Para: 1 Complications Events: Oliohydramnios, Routine care Operative Indications (Cesarea: N/A-Vaginal Delivery Intrapartal Events: None L&D Stage1 Stage One Onset of Labor - Date: Oct 08, 2018 Monitors and Tracing Monitor Mode: External Heart Rate: 125 Station: -2 Short Term Variability: Present Presentation: Vertex Vital Signs VS - Last 72 Hours, by Label 10/07/18 10/07/18 10/07/18 10/07/18 15:42 16:12 16:50 17:15 Temp 97.5 97.8 Pulse 80 88 86 Resp 18 18 18 B/P (MAP) 126/75 (92) 114/74 (87) 107/71 (83) O2 Delivery Room Air Room Air Room Air 10/07/18 10/07/18 10/07/18 10/07/18 17:30 17:45 18:00 18:15 Pulse 78 75 80 70 Resp 18 18 18 18 B/P (MAP) 104/68 (80) 106/70 (82) 109/73 (85) 106/70 (82) O2 Delivery Room Air Room Air Room Air Room Air 10/07/18 10/07/18 10/07/18 10/07/18 18:30 18:45 19:00 19:15 Pulse 70 84 88 77 Resp 18 18 18 18 B/P (MAP) 106/70 (82) 121/77 (92) 126/85 (99) 119/75 (90) O2 Delivery Room Air Room Air Room Air Room Air 10/07/18 10/07/18 10/07/18 10/07/18 19:30 19:45 20:00 20:10 Temp 98.0 Pulse 77 75 81 84 Resp 18 18 18 18 B/P (MAP) 121/67 (85) 122/62 (82) 122/73 (89) 123/78 (93) Pulse Ox 98 97 O2 Delivery Room Air Room Air Room Air Room Air 10/07/18 10/07/18 10/07/18 10/07/18 20:19 20:20 20:25 20:27 Pulse 86 87 87 93 Resp 18 18 18 18 B/P (MAP) 121/85 (97) 124/78 (93) 127/76 (93) 127/76 (93) Pulse Ox 96 96 96 96 O2 Delivery Room Air Room Air Room Air Room Air 10/07/18 10/07/18 10/07/18 10/07/18 20:33 20:35 20:38 20:41 Temp 99.4 Pulse 81 97 102 93 Resp 18 18 18 18 B/P (MAP) 120/83 (95) 114/63 (80) 109/59 (76) 117/62 (80) Pulse Ox 96 96 96 96 O2 Delivery Room Air Room Air Room Air Room Air 10/07/18 10/07/18 10/07/18 10/07/18 20:44 20:47 20:52 21:10 Pulse 100 101 93 75 Resp 18 18 18 18 B/P (MAP) 124/63 (83) 126/55 (78) 110/63 (79) 109/57 (74) Pulse Ox 96 96 96 97 O2 Delivery Room Air Room Air Room Air Room Air 10/07/18 10/07/18 10/07/18 10/07/18 21:25 21:40 21:55 22:10 Temp 97.7 Pulse 81 81 73 70 Resp 18 16 16 16 B/P (MAP) 116/63 (80) 106/59 (75) 104/63 (77) 107/61 (76) Pulse Ox 97 96 94 93 O2 Delivery Room Air Room Air Room Air Room Air 10/07/18 22:25 Temp 98.7 Pulse 87 Resp 16 B/P (MAP) 96/51 (66) Pulse Ox 97 O2 Delivery Room Air Rupture of Membranes Spontaneous Ruture of Membrane: No Amniotic Membrane Rupture Time: 1910 Amniotic Membrane Fluid Desc.: Clear Vaginal Bleeding Description: Normal Show Induction/Anesthesia Epidural Cath Placement - Time: 2024 Progress/Notes AROM of forebag, and Pitocin augmentation used, patient received epidural and progressed to complete and +2 station. L&D Stage2 Stage Two Stage II Date: Oct 08, 2018 Monitors and Tracing Monitor Mode: External Heart Rate: 125 Monitor Accelerations: Uniform Haul Driver Variability: Average (6-10) Short Term Variability: Present Position: Right Occiput Anterior Presentation: Vertex Cord Descript/Complications Cord Vessel Description: 3 Vessels Delivery Type Delivery Method: Spontaneous Vaginal Anterior Shoulder: Right Episiotomy/Perineal Laceration Laceraction(s)/Extensions: Yes Episiotomy Description: Right Mediolateral Degree (describe repair) RML repaired using 3-0 rapide and 2-0 vicryl suture in usual fashion Condition of Infant Delivery 1 minute Comment: 8 5 minute Comment: 9 Notes Live female weight 7lbs even. Condition of Infant Condition of : Living Exam: No Observed Abnormalities Resuscitation Resuscitation: N/A - Spontaneous Resp L&D Stage3 Stage Three Stage III Date: Oct 08, 2018 Pictocin Pitocin Administration mu/min: 8 Pitocin ml/hr: 8 Pitocin Administration Comment: 30 mu pitocin wide open at delivery Placenta Delivery Placenta Delivery: Spontaneous Delivery Summary Summary Estimated blood loss (mL): 350 Attending at delivery: Storm Kim DO Condition of Delivery Examined: Cervix Examined, Uterus Explored Post Hemorrhage: No Condition of Mother stable Condition of Infant (s) stable STORM KIM DO Oct 08, 2018 00:04
--- NOTE | 2018-10-08 00:05 | Discharge Inst-Women's Service ---
Discharge Inst-Women's Serv Depart Medication/Instructions New, Converted or Re-Newed RX: RX on Chart Final Diagnosis PPD 2 NVD Consults/Follow Up Additional Follow Up: Yes Orders/Referrals Dr. Kim in 6 weeks Activity Activity: Activity as Tolerated Driving Instructions: No Driving for 1 Week NO SMOKING: NO SMOKING Nothing Inside Vagina: No Douching, No [place], No Tampons Diet Discharge Diet: No Restrictions Symptoms to Report to : Bleeding Excessive, Pain Increased, Fever Over 101 Degrees F, Vaginal Bleeding Increase, Questions/Concerns For Any Problems or Questions: Contact Your Physician STORM KIM DO Oct 08, 2018 00:05
[2018-10-08] MEDS ORDERED: DOCU100C37 PO (00:07)
[2018-10-08] MEDS ORDERED: FERR325T18 PO (00:07)
[2018-10-08] MEDS ORDERED: Benzocaine/Menthol TP (00:07)
[2018-10-08] MEDS ORDERED: ACHD5005 PO (00:07)
[2018-10-08] MEDS ORDERED: IBUP-844 PO (00:07)
[2018-10-08] MEDS: IBUPROFEN 600 MG (MOTRIN) TAB PO SCH ×4 (00:58→17:49)
--- NOTE | 2018-10-08 02:00 | NUR ---
Pt has feeling back in both legs. Pt up to wc with standby assist and taken into bathroom. Void noted. Pericare demonstrated, discussed and given. Clean vpad and mesh panties on. Clean gown in place. Epidural cath removed and tip intact. Pt transferred to PP room 312 via wheel chair. Pt assisted to PP bed, call light within reach and oriented to room. Fresh ice water given, info papers explained.
[2018-10-08] MEDS ORDERED: CATHETER FLUSH 10 ML SYR IV SCH (06:00)
[2018-10-08 06:38] LABS: BASOPHILS % (AUTO) 0 % (0-10); EOSINOPHILS % (AUTO) 0 % (0-10); HEMATOCRIT 34 % (35-52); HEMOGLOBIN 11.1 G/DL (11.5-16.0); LYMPHOCYTES # (AUTO) 2.1 X 10^3 (1.0-4.0); LYMPHOCYTES % (AUTO) 21 % (12-44); MEAN CORPUSCULAR HEMOGLOBIN 29 PG (25-34); MEAN CORPUSCULAR HGB CONC 33 G/DL (32-36); MEAN CORPUSCULAR VOLUME 89 FL (80-99); MEAN PLATELET VOLUME 9.7 FL (7.4-10.4); MONOCYTES # (AUTO) 0.7 X 10^3 (0.0-1.0); MONOCYTES % (AUTO) 7 % (0-12); NEUTROPHILS # (AUTO) 7.1 X 10^3 (1.8-7.8); NEUTROPHILS % (AUTO) 72 % (42-75); PLATELET COUNT 236 10^3/uL (130-400); RED CELL DISTRIBUTION WIDTH 14.1 % (10.0-14.5); WHITE BLOOD COUNT 9.9 10^3/uL (4.3-11.0)
--- NOTE | 2018-10-08 07:00 | NUR ---
pt sitting up eating breakfast.
--- NOTE | 2018-10-08 07:25 | Anesthesia-Regional Post-Op ---
Regional Patient Condition Mental Status: Alert, Oriented x3 Circulation: Same as Pre-Op Headache: Absent Sensation: Full Recovery Motor Block: Absent Post Op Complications Complications None Follow Up Care/Instructions Patient Instructions None needed. Anesthesia/Patient Condition Patient is doing well, no complaints, stable vital signs, no apparent adverse anesthesia problems. No complications reported per nursing. VALARIE RODRIGUEZ CRNA Oct 08, 2018 07:25
[2018-10-08] MEDS: PRENATAL VITAMIN 1 EA TAB PO SCH (08:38)
[2018-10-08] MEDS: DOCUSATE SODIUM 100 MG (COLACE) CAP PO SCH ×2 (08:38→21:15)
[2018-10-08] MEDS: FERROUS SULF 325 MG (IRON) TAB PO SCH (08:39)
--- NOTE | 2018-10-08 08:40 | NUR ---
PT IN BED. S/O AT THE BEDSIDE. SELF INTRODUCED. VS OBTAINED. INITIAL SHIFT ASSESSMENT COMPLETED; SEE INTERVENTION FOR FURTHER. MEDS GIVEN PO; SEE EMAR FOR FURTHER. IV DC'D, CATHETER TIP INTACT. GAUZE AND BAND AID APPLIED OVER SITE. SHOWER SET UP. PT PREPPING TO WAKE INFANT UP TO FEED. DR. BUNCH TO BEDSIDE TO ASSESS .
--- NOTE | 2018-10-08 08:58 | NUR ---
Assuming care of [place] devops consultant working with mom at present.
--- NOTE | 2018-10-08 10:30 | Postpartum Progress Note ---
Note Note Day # 1 Subjective: Patient is without complaints. Ambulating, voiding. Tolerating a regular diet without nausea or vomiting. Normal lochia. Pain is well controlled with oral pain medications. Objective: Physical Exam: General - Alert and oriented, no apparent distress Abdomen - Soft, appropriately tender to palpation, non-distended, fundus firm at umbilicus Extremities - no edema, negative Jose's bilaterally Assessment: PPD 1 NVD Acute blood loss anemia Plan: Routine care. Encourage breast feeding. Encourage ambulation. Ferrous sulfate supplementation. Plan for discharge tomorrow Vitals - Labs Vital Signs - I&O Vital Signs Date Time Temp Pulse Resp B/P (MAP) Pulse Ox O2 Delivery O2 Flow Rate FiO2 10/08/18 04:05 97.5 72 18 117/62 (80) 96 Room Air 10/08/18 01:37 98.7 64 18 112/74 (87) Room Air 10/08/18 01:20 56 18 105/67 (80) Room Air 10/08/18 01:10 68 18 105/60 (75) Room Air 10/08/18 00:50 63 18 102/60 (74) Room Air 10/08/18 00:40 69 18 107/56 (73) Room Air 10/08/18 00:10 73 18 106/66 (79) Room Air 10/07/18 23:55 80 18 103/64 (77) Room Air 10/07/18 23:40 77 18 105/72 (83) Room Air 10/07/18 23:25 89 18 112/70 (84) Room Air 10/07/18 23:10 80 18 111/56 (74) 96 Room Air 10/07/18 22:55 75 16 101/64 (76) 95 Room Air 10/07/18 22:40 83 16 109/71 (84) 94 Room Air 10/07/18 22:25 98.7 87 16 96/51 (66) 97 Room Air 10/07/18 22:10 70 16 107/61 (76) 93 Room Air 10/07/18 21:55 73 16 104/63 (77) 94 Room Air 10/07/18 21:40 81 16 106/59 (75) 96 Room Air 10/07/18 21:25 97.7 81 18 116/63 (80) 97 Room Air 10/07/18 21:10 75 18 109/57 (74) 97 Room Air 10/07/18 20:52 93 18 110/63 (79) 96 Room Air 10/07/18 20:47 101 18 126/55 (78) 96 Room Air 10/07/18 20:44 100 18 124/63 (83) 96 Room Air 10/07/18 20:41 93 18 117/62 (80) 96 Room Air 10/07/18 20:38 102 18 109/59 (76) 96 Room Air 10/07/18 20:35 99.4 97 18 114/63 (80) 96 Room Air 10/07/18 20:33 81 18 120/83 (95) 96 Room Air 10/07/18 20:27 93 18 127/76 (93) 96 Room Air 10/07/18 20:25 87 18 127/76 (93) 96 Room Air 10/07/18 20:20 87 18 124/78 (93) 96 Room Air 10/07/18 20:19 86 18 121/85 (97) 96 Room Air 10/07/18 20:10 84 18 123/78 (93) 97 Room Air 10/07/18 20:00 81 18 122/73 (89) 98 Room Air 10/07/18 19:45 75 18 122/62 (82) Room Air 10/07/18 19:30 98.0 77 18 121/67 (85) Room Air 10/07/18 19:15 77 18 119/75 (90) Room Air 10/07/18 19:00 88 18 126/85 (99) Room Air 10/07/18 18:45 84 18 121/77 (92) Room Air 10/07/18 18:30 70 18 106/70 (82) Room Air 10/07/18 18:15 70 18 106/70 (82) Room Air 10/07/18 18:00 80 18 109/73 (85) Room Air 10/07/18 17:45 75 18 106/70 (82) Room Air 10/07/18 17:30 78 18 104/68 (80) Room Air 10/07/18 17:15 86 18 107/71 (83) Room Air 10/07/18 16:50 88 18 114/74 (87) Room Air 10/07/18 16:12 97.8 10/07/18 15:42 97.5 80 18 126/75 (92) Room Air I & O 10/08/18 07:00 Intake Total 3400 ml Output Total 500 ml Balance 2900 ml Labs Laboratory Tests 10/07/18 16:36: White Blood Count 6.6, Red Blood Count 3.82L, Hemoglobin 11.2L, Hematocrit 34L, Mean Corpuscular Volume 89, Mean Corpuscular Hemoglobin 29, Mean Corpuscular Hemoglobin Concent 33, Red Cell Distribution Width 14.2, Platelet Count 242, Mean Platelet Volume 9.8, Neutrophils (%) (Auto) 65, Lymphocytes (%) (Auto) 28, Monocytes (%) (Auto) 7, Eosinophils (%) (Auto) 0, Basophils (%) (Auto) 0, Neutrophils # (Auto) 4.3, Lymphocytes # (Auto) 1.8, Monocytes # (Auto) 0.4, Eosinophils # (Auto) 0.0, Basophils # (Auto) 0.0 10/08/18 06:25: White Blood Count 9.9, Red Blood Count 3.79L, Hemoglobin 11.1L, Hematocrit 34L, Mean Corpuscular Volume 89, Mean Corpuscular Hemoglobin 29, Mean Corpuscular Hemoglobin Concent 33, Red Cell Distribution Width 14.1, Platelet Count 236, Mean Platelet Volume 9.7, Neutrophils (%) (Auto) 72, Lymphocytes (%) (Auto) 21, Monocytes (%) (Auto) 7, Eosinophils (%) (Auto) 0, Basophils (%) (Auto) 0, Neutrophils # (Auto) 7.1, Lymphocytes # (Auto) 2.1, Monocytes # (Auto) 0.7, Eosinophils # (Auto) 0.0, Basophils # (Auto) 0.0 STORM KIM DO Oct 08, 2018 10:30
--- NOTE | 2018-10-08 16:45 | NUR ---
MMR, Tdap, Flu vaccine given. VIS given and pt verbalizes understanding. Cautioned against getting in the next 3 months due to the live rubella vaccine. Pt verbalized understanding.
[2018-10-08] MEDS: HYDROcodone/APAP 5 MG/325 MG (LORTAB) TAB PO PRN (21:15)
[2018-10-08] MEDS: guaiFENesin (MUCINEX) 600 MG TAB PO SCH (21:15)
[2018-10-09] MEDS: IBUPROFEN 600 MG (MOTRIN) TAB PO SCH ×4 (05:41→18:15)
[2018-10-09 05:44] VITALS: BP 142/71
[2018-10-09 08:12] VITALS: BP 108/74
--- NOTE | 2018-10-09 08:20 | Postpartum Progress Note ---
Note Note Day # 2 Subjective: Patient is without complaints. Ambulating, voiding. Tolerating a regular diet without nausea or vomiting. Normal lochia. Pain is well controlled with oral pain medications. Objective: Physical Exam: General - Alert and oriented, no apparent distress Abdomen - Soft, appropriately tender to palpation, non-distended, fundus firm at umbilicus Extremities - no edema, negative Jose's bilaterally Assessment: PPD 2 NVD Plan: Routine care. Encourage breast feeding. Encourage ambulation. Ferrous sulfate supplementation. Plan for discharge today Vitals - Labs Vital Signs - I&O Vital Signs Date Time Temp Pulse Resp B/P (MAP) Pulse Ox O2 Delivery O2 Flow Rate FiO2 10/09/18 05:44 97.5 73 18 142/71 (94) 97 Room Air 10/08/18 23:00 98.3 84 16 119/68 (85) 97 Room Air 10/08/18 16:00 98.4 68 16 98/68 (78) 97 Room Air 10/08/18 12:15 98.3 75 16 111/73 (86) 97 10/08/18 08:30 97.6 71 18 111/71 (84) 98 Room Air STORM KIM DO Oct 09, 2018 08:20
[2018-10-09] MEDS: HYDROcodone/APAP 5 MG/325 MG (LORTAB) TAB PO PRN ×2 (08:28→13:45)
[2018-10-09] MEDS: guaiFENesin (MUCINEX) 600 MG TAB PO SCH (08:30)
[2018-10-09] MEDS: FERROUS SULF 325 MG (IRON) TAB PO SCH (08:31)
[2018-10-09] MEDS: PRENATAL VITAMIN 1 EA TAB PO SCH (08:31)
[2018-10-09] MEDS: DOCUSATE SODIUM 100 MG (COLACE) CAP PO SCH (08:31)
--- NOTE | 2018-10-09 11:53 | NUR ---
Discharge home instructions given - written and verbal. Verbalizes understanding. Mom to become a boarder due to infant's status.
--- NOTE | 2018-10-09 13:45 | NUR ---
PAIN MED GIVEN PO PER PT REQUEST; SEE EMAR FOR FURTHER. VISITOR TO BEDSIDE. PT DENIES ANY NEEDS AT THIS TIME.
--- NOTE | 2018-10-09 17:30 | NUR ---
PT AT THIS TIME. DENIES ANY NEEDS. TRYING TO DECIDE WHETHER OR NOT THEY ARE GOING TO ORDER THEIR STORK MEAL BEFORE DISCHARGE.
--- NOTE | 2018-10-09 18:15 | NUR ---
ROUTINE MOTRIN GIVEN PO PER Vivek MALIK RN. SEE EMAR FOR FURTHER.
--- NOTE | 2018-10-09 19:30 | NUR ---
PT DISCHARGED FROM -312 TO BOARDER MOM STATUS TO ROOM IN WITH INFANT. PT DENIES ANY NEEDS AT THIS TIME.
== END 2018-10-09 19:30 | disposition home or self-care (01) | DRG 807 ==
LOC: LDRP 15:18
PROVIDERS: ADMIT Obstetrics & Gynecology; ATTEND Obstetrics & Gynecology
PROC: 10E0XZZ Delivery of Products of Conception, External Approach (ICD-10-PCS; principal; 2018-10-08)
PROC: 0W8NXZZ Division of Female Perineum, External Approach (ICD-10-PCS; 2018-10-08)
DX: O41.03X0 Oligohydramnios, third trimester, not applicable or unspecified (principal); O99.820 Streptococcus B carrier state complicating pregnancy; Z3A.37 37 weeks gestation of pregnancy; Z37.0 Single live birth
CPT/HCPCS: 36415; 85025; 86850; 86900; 86901

== ENCOUNTER → 2021-07-16 | Outpatient (CLI) | payer MEDICAID ==
[~2021-07-16] MED LIST changes: +ACHD5005 PO; +Benzocaine/Menthol TP; +IBUP-844 PO
--- NOTE | 2021-07-16 11:32 | Diagnostic Imaging Report ---
INDICATION: Routine care. TECHNIQUE: Multiple Real-time grayscale images were obtained over the gravid uterus. COMPARISON: None FINDINGS: There is a single live fetus with the fetus in transverse presentation with the head to the maternal right. The heart rate was recorded at 130 BPM. The placenta is posterior. There appears to be a complete placenta previa. The cervical length is 4 cm. The amniotic fluid volume appears normal. The kidneys, bladder, and stomach are unremarkable. The brain is unremarkable. There is a four-chamber heart. There is a 3 vessel cord with normal insertion. The spine and outflow tracts are somewhat limited in evaluation due to position. Biometrical measurements are as follows: Biparietal 4.92 cm, age 21 weeks 0 days. Head circumference 18.47 cm, age 20 weeks 6 days. Abdominal circumference 16.13 cm, age 21 weeks 2 days. Femur length 3.49 cm, age 21 weeks 1 days. Sonographic estimate age: 21 weeks 1 days. Sonographic estimated date of delivery: 11/25/2021. Estimated Weight: 398 gm (+/- 58 gm). LMP percentile: 58%. heart rate: 138 beats per minute. number: 1 of 1. IMPRESSION: Single live IUP of 21 weeks 1 day gestational age. Note is made of complete placenta previa. survey was unremarkable although the spine and outflow tract evaluation was somewhat limited due to position. Dictated by: Dictated on workstation # [id number]
== END ==
LOC: RAD 10:00
PROVIDERS: ATTEND Obstetrics & Gynecology
DX: Z34.82 Encounter for supervision of other normal pregnancy, second trimester (principal); Z3A.21 21 weeks gestation of pregnancy
CPT/HCPCS: 76805

== ENCOUNTER → 2021-10-22 | Outpatient (CLI) | payer MEDICAID ==
--- NOTE | 2021-10-22 19:49 | Diagnostic Imaging Report ---
INDICATION: Recheck placenta previa, check growth and MAGDALENA. TECHNIQUE: Multiple real-time grayscale images were obtained over the gravid uterus. COMPARISON: 07/16/2021 FINDINGS: Previously noted complete placenta previa has improved however the placenta is low-lying at this time. It is approximately 1.5 cm from the internal os. Maternal cervix measures approximately 3.4 cm in length. It is slightly dilated with fluid seen just entering the proximal cervix. Full survey not performed at this time. Measurements correspond with the previous sonogram. There appears to be possible delayed growth as the previous estimated date of delivery was 11/25/2021 with the current estimated date of delivery 12/17/2021. Clinical correlation and short-term follow-up recommended for reevaluation. Heart rate is approximately 132 bpm. MAGDALENA is within normal limits measuring 10.75 cm. Biometrical measurements are as follows: Biparietal 7.54 cm, age 30 weeks 2 days. Head circumference 27.78 cm, age 30 weeks 3 days. Abdominal circumference 28.18 cm, age 32 weeks 2 days. Femur length 6.80 cm, age 35 weeks 0 days. Sonographic estimate age: 32 weeks 0 days. Sonographic estimated date of delivery: 12/17/2021. Estimated Weight: 2020 gm (+/- 295 gm). LMP percentile: 5%. heart rate: 132 beats per minute. number: 1 of 1. IMPRESSION: Single live intrauterine gestation with measurements as above which appear delayed when compared to the most recent sonogram. Clinical correlation and short-term follow-up recommended. 2. Low-lying placenta which should be followed, as well. 3. Slight dilatation and fluid along the proximal cervical canal. Dictated by: Dictated on workstation # [id number]
== END ==
LOC: RAD 15:15
PROVIDERS: ATTEND Nurse Practitioner Women's Health
DX: O44.03 Complete placenta previa NOS or without hemorrhage, third trimester (principal); Z3A.30 30 weeks gestation of pregnancy
CPT/HCPCS: 76805

== ENCOUNTER 2021-10-25 05:48 | Outpatient (CLI) | payer MEDICAID ==
[~2021-10-25] VITALS: Ht 160 cm; Wt 78.6 kg
== END 2021-10-25 15:23 | disposition home or self-care (01) ==
LOC: PREOP 05:48
PROVIDERS: ATTEND Obstetrics & Gynecology
DX: Z01.818 Encounter for other preprocedural examination (principal)

== ENCOUNTER 2021-10-31 10:05 | Inpatient (IN) | payer MEDICAID ==
[2021-10-31] VITALS (10 sets, daily range): BP systolic 93–114; BP diastolic 52–66
[~2021-10-31] VITALS: Ht 160 cm; Wt 79.0 kg
[2021-10-31] MEDS ORDERED: LACTATED RINGERS 1,000 ML IV PRN (11:30)
[2021-10-31] MEDS ORDERED: CITRIC ACID/SOB CIT (BICITRA) 30 ML UDC PO ONE (11:30)
[2021-10-31] MEDS ORDERED: CATHETER FLUSH 10 ML SYR IV PRN (11:30)
[2021-10-31] MEDS ORDERED: ceFAZolin 2 GM IV Premixed 50 ML IV ONE (11:30)
[2021-10-31] MEDS ORDERED: METOCLOPRAMIDE INJ 10 MG/2 ML (REGLAN) IV ONE (11:30)
[2021-10-31] MEDS ORDERED: FAMOTIDINE 20MG/2ML IV (PEPCID) IV ONE (11:30)
[2021-10-31] MEDS ORDERED: metroNIDAZOLE 500MG/100ML IVPB 100 ML IV ONE (11:30)
[2021-10-31 11:38] LABS: BASOPHILS % (AUTO) 0 % (0-10); EOSINOPHILS % (AUTO) 1 % (0-10); HEMATOCRIT 32 % (35-52); LYMPHOCYTES # (AUTO) 1.7 10^3/uL (1.0-4.0); LYMPHOCYTES % (AUTO) 26 % (12-44); MEAN CORPUSCULAR HEMOGLOBIN 27 pg (25-34); MEAN CORPUSCULAR HGB CONC 32 g/dL (32-36); MEAN CORPUSCULAR VOLUME 86 fL (80-99); MEAN PLATELET VOLUME 9.3 fL (9.0-12.2); MONOCYTES # (AUTO) 0.6 10^3/uL (0.0-1.0); MONOCYTES % (AUTO) 9 % (0-12); NEUTROPHILS # (AUTO) 4.2 10^3/uL (1.8-7.8); NEUTROPHILS % (AUTO) 64 % (42-75); PLATELET COUNT 255 10^3/uL (130-400); WHITE BLOOD COUNT 6.6 10^3/uL (4.3-11.0)
[2021-10-31] MEDS ORDERED: metroNIDAZOLE 500MG/100ML IVPB 100 ML ONE (11:39)
[2021-10-31] MEDS ORDERED: fentaNYL INJ 100 MCG/2 ML AMP ONE (11:39)
[2021-10-31] MEDS ORDERED: ceFAZolin 2 GM IV Premixed 50 ML ONE (11:40)
[2021-10-31] MEDS ORDERED: FAMOTIDINE 20MG/2ML IV (PEPCID) ONE (11:40)
[2021-10-31] MEDS ORDERED: CITRIC ACID/SOB CIT (BICITRA) 30 ML UDC ONE (11:40)
[2021-10-31] MEDS ORDERED: METOCLOPRAMIDE INJ 10 MG/2 ML (REGLAN) ONE (11:40)
[2021-10-31] MEDS: LACTATED RINGERS 1,000 ML IV PRN ×2 (11:50→12:40)
--- NOTE | 2021-10-31 12:26 | History & Physical-OB ---
OB - Chief Complaint & HPI Date/Time Date of Admission: Date of Admission: Oct 31, 2021 at 10:05 Date seen by a Provider: Oct 31, 2021 Time Seen by a Provider: 12:05 Chief Complaint/History OB-Reason for Admission/Chief: Section Hx : 3 Hx Para: 2 Expected Date of Delivery: Nov 27, 2021 Gestational Age in Weeks: 36 Gestational Age in Days: 1 Indication for : other (placenta previa) Other reason for admission: Patient here for PLTCS due to placenta previa, and severe IUGR. Admission Nurse Assessment Rev: Yes History of Labs A pos Antibody neg RI RPR NR HBsAg NR HIV NR GC neg GBS pos Allergies and Home Medications Allergies Coded Allergies: No Known Drug Allergies (Unverified , 04/10/17) Patient Home Medication List Home Medication List Reviewed: Yes Docosahexanoic Acid ( Dha) 200 Mg Capsule, 200 MG PO DAILY, (Reported) Entered as Reported by: CHE HORVATH on 04/10/17547 Famotidine (Pepcid) 20 Mg Tablet, 20 MG PO BID, (Reported) Entered as Reported by: CHE HORVATH on 04/10/17547 Discontinued Medications Docusate Sodium (Docusate Sodium) 100 Mg Capsule, 100 MG PO BID PRN for CONSTIPATION-1ST LINE Discontinued Reason: No Longer Taking Prescribed by: STORM KIM on 10/08/186 Ferrous Sulfate (Ferrous Sulfate) 325 Mg Tablet, 325 MG PO DAILY Discontinued Reason: No Longer Taking Prescribed by: STORM KIM on 10/08/186 Hydrocodone Bit/Acetaminophen (Lortab 5 Mg Tablet) 1 Tab Tab, 1 TAB PO Q4H PRN for PAIN-MODERATE Discontinued Reason: No Longer Taking Prescribed by: STORM KIM on 10/08/186 Ibuprofen (Ibu) 600 Mg Tablet, 600 MG PO Q6H Discontinued Reason: No Longer Taking Prescribed by: STORM KIM on 10/08/186 [Benzocaine/Menthol] 56 ML AEROSOL, 56 ML TP UD PRN for PAIN- SEE INSTRUCTIONS Discontinued Reason: No Longer Taking Prescribed by: STORM KIM on 10/08/186 OB - History Hx of Present Care: Yes Ultrasounds: Abnormal US findings (IUGR) Medical Complications: None Delivery History Hx Blood Disorders: No Patient Past Medical History n/a Social History/Family History 2nd Hand Smoke Exposure: No Immunizations Influenza Vaccine Up-to-Date: No; Not Current Hepatitis A: Yes Hepatitis B: Yes Tetanus Booster (TDap): Unknown OB - Admission Exam Physical Exam Vitals: Vital Signs 10/31/21 10/31/21 10:26 11:14 Temp 36.1 Pulse 100 Resp 18 B/P (MAP) 113/66 (82) Pulse Ox 97 O2 Delivery Room Air HEENT: NCAT Heart: Rhythm Normal Lungs: Clear Abdomen: Gravid Extremities: Normal Reflexes: Normal Heart Rate: 120's Accelerations: Accelerations Present Decelerations: No Decelerations Short Term Variability: Present Fdc Variability: Average (6-25) Contractions on Admission: >10 Minutes Apart Intensity: Mild Labs Laboratory Tests Test 10/31/21 10:40 Range/Units White Blood Count 6.6 4.3-11.0 10^3/uL Red Blood Count 3.66 L 3.80-5.11 10^6/uL Hemoglobin 10.0 L 11.5-16.0 g/dL Hematocrit 32 L 35-52 % Mean Corpuscular Volume 86 80-99 fL Mean Corpuscular Hemoglobin 27 25-34 pg Mean Corpuscular Hemoglobin Concent 32 32-36 g/dL Red Cell Distribution Width 13.2 10.0-14.5 % Platelet Count 255 130-400 10^3/uL Mean Platelet Volume 9.3 9.0-12.2 fL Immature Granulocyte % (Auto) 1 % Neutrophils (%) (Auto) 64 42-75 % Lymphocytes (%) (Auto) 26 12-44 % Monocytes (%) (Auto) 9 0-12 % Eosinophils (%) (Auto) 1 0-10 % Basophils (%) (Auto) 0 0-10 % Neutrophils # (Auto) 4.2 1.8-7.8 10^3/uL Lymphocytes # (Auto) 1.7 1.0-4.0 10^3/uL Monocytes # (Auto) 0.6 0.0-1.0 10^3/uL Eosinophils # (Auto) 0.0 0.0-0.3 10^3/uL Basophils # (Auto) 0.0 0.0-0.1 10^3/uL Immature Granulocyte # (Auto) 0.0 0.0-0.1 10^3/uL OB - Assessment/Plan/Diagnosis Assessment Assessment: section Admission Dx 36 yo @ 36 weeks Placenta Previa Severe IUGR GBS pos Admission Status: Inpatient Order (span 2 midnights) Reason for Inpatient Admission: PLTCS at 36 weeks Plan Plan: Section STORM KIM DO Oct 31, 2021 12:26
[2021-10-31] MEDS ORDERED: MEASLES,MUMPS,RUBELLA 1 EA INJ SC SCH (12:30)
[2021-10-31] MEDS ORDERED: ONDANSETRON 4 MG/2 ML (SDV) Z0FRAN IVP PRN (12:30)
[2021-10-31] MEDS ORDERED: TETANUS,DIPTH,PERTUSS P/F (BOOSTRIX) 0.5 ML VIAL IM SCH (12:30)
[2021-10-31] MEDS ORDERED: NALOXONE 0.4 MG/ML 1 ML (NARCAN) VIAL IV PRN ×2 (12:30→14:15)
--- NOTE | 2021-10-31 12:32 | Discharge Inst-Women's Service ---
Discharge Inst-Women's Serv Depart Medication/Instructions New, Converted or Re-Newed RX: Transmitted to Pharmacy Final Diagnosis POD 2 PLTCS Problems Reviewed?: Yes Consults/Follow Up Additional Follow Up: Yes Orders/Referrals Dr. Howard in 7-10 days and in 6 weeks Activity Activity: Activity as Tolerated Driving Instructions: No Driving for 1 Week NO SMOKING: NO SMOKING Nothing Inside Vagina: No Douching, No [place], No Tampons Diet Discharge Diet: No Restrictions Symptoms to Report to : Bleeding Excessive, Pain Increased, Fever Over 101 Degrees F, Vaginal Bleeding Increase, Questions/Concerns For Any Problems or Questions: Contact Your Physician Skin/Wound Care Infection Signs and Symptoms: Increased Redness, Foul Odor of Wound, Increased Drainage, Skin Itchy or Has a Rash, Increased Swelling, Temperature Above 101 F Operative Area Clean and Dry: Keep Incision Clean/Dry Stitches/[place]/Dermabond: Dermabond, Care of Stitches Bathing Instructions: STORM Malin DO Oct 31, 2021 12:32
[2021-10-31] MEDS ORDERED: ACHD5005 PO (12:33)
[2021-10-31] MEDS ORDERED: IBUP-844 PO (12:33)
[2021-10-31] MEDS ORDERED: DOCU100C37 PO (12:33)
[2021-10-31] MEDS ORDERED: OXYTOCIN PRE-MIX DRIP 500 ML IV ONE (13:08)
[2021-10-31] MEDS ORDERED: ROPIVACAINE 5MG/ML 30ML VIAL ONE (13:08)
[2021-10-31] MEDS ORDERED: ONDANSETRON 4 MG/2 ML (SDV) Z0FRAN ONE (13:09)
[2021-10-31] MEDS: OXYTOCIN PRE-MIX DRIP 500 ML IV SCH ×2 (14:04→15:04)
[2021-10-31] MEDS ORDERED: diphenhydrAMINE 50 MG/ML INJ (BENADRYL) IV PRN (14:15)
[2021-10-31] MEDS ORDERED: ONDANSETRON 4 MG/2 ML (SDV) Z0FRAN IV PRN (14:15)
[2021-10-31] MEDS: KETOROLAC 30 MG/ML VIAL IV SCH ×2 (14:43→20:18)
[2021-10-31] MEDS: HYDROcodone/APAP 5 MG/325 MG (LORTAB) TAB PO PRN (18:57)
[2021-10-31] MEDS: METOCLOPRAMIDE 10 MG (REGLAN) TAB PO SCH (20:16)
[2021-10-31] MEDS: DOCUSATE SODIUM 100 MG (COLACE) CAP PO SCH (20:16)
--- NOTE | 2021-10-31 20:57 | OPERATIVE REPORT ---
DATE OF SERVICE: PREOPERATIVE DIAGNOSES: 1. A 36-year-old G3, P2 at 36 weeks and 1 day gestation. 2. Placenta previa. 3. Severe intrauterine growth restriction on previous ultrasound estimated weight. POSTOPERATIVE DIAGNOSES: 1. A 36-year-old G3, P2 at 36 weeks and 1 day gestation. 2. Placenta previa. 3. Severe intrauterine growth restriction on previous ultrasound estimated weight. PROCEDURE: Primary low transverse section. SURGEON: Zen Kim DO BUFFER COPPER: Julianna Jc DNP, was necessary for manipulation and retraction throughout the procedure. ANESTHESIA: Spinal. ESTIMATED BLOOD LOSS: 400 mL. URINE OUTPUT: 100 mL clear at the end of the procedure. FLUIDS: 2500 mL lactated Ringer's solution. FINDINGS: A live male weighing 6 pounds 11 ounces, Apgars of 8 and 9. Grossly normal appearing uterus, bilateral fallopian tubes and ovaries. SPECIMEN SENT: Placenta. INDICATIONS FOR PROCEDURE: This 36-year-old female is a patient who had sought her care in my office. Her was complicated by marginal previa that never resolve throughout the . Her last scan revealed that it was still within 2 cm of the internal os. Due to concerns for abruption and placental bleed intrapartum, we discussed proceeding with . Risks of procedure were discussed with the patient in detail. There was also a concern for growth; however, this was corrected after . The patient received betamethasone at 34 weeks for anticipation of early delivery. After all the patient's questions were answered, consent was obtained, the patient was taken to the operating room. OPERATIVE REPORT IN DETAIL: Once in the operating room, spinal analgesia was found to be adequate. She was placed in supine position with leftward tilt, prepped and draped in normal sterile fashion. Timeout was performed and anesthesia was tested. I then make a Pfannenstiel skin incision and took this down to underlying fascia using Bovie cautery. The fascial incision extended laterally using Bovie cautery. Superior aspect of fascial incision was then grasped with Dunia clamps, tented upward and dissected off the underlying rectus muscles. The inferior aspect of the fascial incision was then grasped with Dunia clamps, tented up and dissected off the underlying rectus muscles. The rectus muscles were dissected down the midline, which exposed the peritoneum, which I entered bluntly and extended using blunt traction. Edinson ring retractor was placed in the peritoneal incision, which offers excellent lateral sidewall retraction. I identified the lower uterine segment, which was found to be thinned out and make a low transverse incision to the vesicouterine peritoneum and bluntly dissected off the lower uterine segment, creating a bladder flap. I then proceeded with myotomy until membranes were visualized, at which point I extended the uterine incision laterally and superiorly using bandage scissors. Amniotomy was performed in the process of doing this, clear fluid was noted. was found in vertex presentation. With gentle fundal pressure, the 's head was elevated up to the incision where the nares and oropharynx were bulb suctioned. Anterior and posterior shoulders were delivered. The infant was brought into the operative field where the cord was doubly clamped and cut and was handed off to waiting nurses in attendance. Cord blood was collected. 3-vessel cord with intact placenta was delivered spontaneously thereafter. IV Pitocin is initiated to facilitate uterine contraction. Uterine fundus confirmed by manual massage. The uterus was then exteriorized and cleared of all endometrial clots and debris. I then proceeded with closing the uterine incision using 0 Vicryl suture in a running locked fashion. Second layer of imbricating 0 Monocryl was placed. Excellent hemostasis was noted after doing this. I then placed the uterus back in the pelvis and copiously irrigated the pelvis using normal saline. Once again, there was no active bleeding noted from any of my dissection planes. I placed Interceed antiadhesive over my low transverse incision. I removed the Edinson ring retractor and then proceeded with closing the peritoneum using 3-0 Vicryl suture in a running fashion. Rectus muscles were reapproximated using 3-0 Vicryl suture in interrupted fashion. The fascia was reapproximated using 0 Vicryl suture in running fashion. Subcutaneous tissue was reapproximated using 3-0 plain in an interrupted subcutaneous stitch and skin reapproximated using 4-0 Monocryl in a running subcuticular. Dermabond was applied to incision and sterile dressing with adhesive white tape. The patient tolerated the procedure well and sent to recovery area in stable condition. Lap and sponge counts were correct at the end of the procedure. Instrument counts correct as well. Two grams of Ancef given preoperatively for infection prophylaxis. Job ID: [id number] DocumentID: [id number] Dictated Date: 10/31/2021 14:27:46 Form Setter Date: 10/31/2021 20:56:36 Dictated By: ZEN KIM DO
[2021-11-01 01:00] VITALS: BP 107/63
[2021-11-01] MEDS: HYDROcodone/APAP 5 MG/325 MG (LORTAB) TAB PO PRN ×3 (01:00→13:44)
[2021-11-01] MEDS: CATHETER FLUSH 10 ML SYR IV SCH ×2 (02:19→03:56)
[2021-11-01 03:56] VITALS: BP 118/68
[2021-11-01] MEDS: KETOROLAC 30 MG/ML VIAL IV SCH ×2 (03:56→09:10)
[2021-11-01] MEDS: METOCLOPRAMIDE 10 MG (REGLAN) TAB PO SCH ×2 (03:57→09:11)
[2021-11-01] MEDS ORDERED: SIMETHICONE 80 MG (MYLICON) CHEW ONE (04:00)
[2021-11-01] MEDS: SIMETHICONE 80 MG (MYLICON) CHEW PO PRN ×2 (04:07→09:25)
[2021-11-01 05:32] LABS: BASOPHILS % (AUTO) 1 % (0-10); EOSINOPHILS # (AUTO) 0.1 10^3/uL (0.0-0.3); EOSINOPHILS % (AUTO) 2 % (0-10); HEMATOCRIT 30 % (35-52); HEMOGLOBIN 9.6 g/dL (11.5-16.0); LYMPHOCYTES # (AUTO) 1.6 10^3/uL (1.0-4.0); LYMPHOCYTES % (AUTO) 22 % (12-44); MEAN CORPUSCULAR HEMOGLOBIN 28 pg (25-34); MEAN CORPUSCULAR HGB CONC 32 g/dL (32-36); MEAN CORPUSCULAR VOLUME 86 fL (80-99); MEAN PLATELET VOLUME 9.4 fL (9.0-12.2); MONOCYTES # (AUTO) 0.6 10^3/uL (0.0-1.0); MONOCYTES % (AUTO) 8 % (0-12); NEUTROPHILS # (AUTO) 5.1 10^3/uL (1.8-7.8); NEUTROPHILS % (AUTO) 68 % (42-75); PLATELET COUNT 198 10^3/uL (130-400); WHITE BLOOD COUNT 7.5 10^3/uL (4.3-11.0)
[2021-11-01] MEDS: DOCUSATE SODIUM 100 MG (COLACE) CAP PO SCH (09:11)
[2021-11-01 09:15] VITALS: BP 115/67
--- NOTE | 2021-11-01 09:45 | Anesthesia-Regional Post-Op ---
Regional Patient Condition Mental Status: Alert, Oriented x3 Circulation: Same as Pre-Op Headache: Absent Sensation: Full Recovery Motor Block: Absent Post Op Complications Complications None Follow Up Care/Instructions Patient Instructions None needed. Anesthesia/Patient Condition Patient is doing well, no complaints, stable vital signs, no apparent adverse anesthesia problems. No complications reported per nursing. VALARIE RODRIGUEZ CRNA Nov 01, 2021 09:45
--- NOTE | 2021-11-01 10:14 | Postpartum Progress Note ---
Note Note Day # 1 Subjective: Patient is without complaints. Ambulating, voiding. Tolerating a regular diet without nausea or vomiting. Normal lochia. Pain is well controlled with oral pain medications. Physical Exam: General - Alert and oriented, no apparent distress Abdomen - Soft, appropriately tender to palpation, non-distended, fundus firm at umbilicus; incision c/d/i Extremities - no edema, negative Jose's bilaterally Assessment: Post- day # 1, status post PLTCS. Recovering well, hemodynamically stable Acute blood loss anemia Plan: Routine care. Encourage breast feeding. Encourage ambulation. Ferrous sulfate supplementation. Plan for discharge today d/t baby's transfer to [facility] Vitals - Labs Vital Signs - I&O Vital Signs Date Time Temp Pulse Resp B/P (MAP) Pulse Ox O2 Delivery O2 Flow Rate FiO2 11/01/21 03:56 37.0 67 18 118/68 (85) 97 Room Air 11/01/21 01:00 36.4 66 18 107/63 (78) 97 Room Air 10/31/21 20:18 36.3 56 18 114/64 (81) 100 Room Air 10/31/21 16:25 35.9 58 18 101/65 (77) 98 Room Air 10/31/21 14:51 Room Air 10/31/21 14:50 35.9 15 99/62 (74) 96 Room Air 10/31/21 14:36 35.8 16 101/61 (74) 97 Room Air 10/31/21 14:36 Room Air 10/31/21 14:21 Room Air 10/31/21 14:21 35.7 12 96/59 (71) 96 Room Air 10/31/21 14:06 35.7 18 97/54 (68) 96 Room Air 10/31/21 14:06 Room Air 10/31/21 13:51 35.8 14 93/52 (66) 98 Room Air 10/31/21 13:51 Room Air 10/31/21 12:20 79 18 110/61 (77) 98 Room Air 10/31/21 11:14 36.1 100 18 97 Room Air 10/31/21 10:26 36.1 108 18 113/66 (82) 98 Room Air I & O 11/01/21 07:00 Intake Total 4750 ml Output Total 3300 ml Balance 1450 ml Labs Laboratory Tests 10/31/21 10:40: White Blood Count 6.6, Red Blood Count 3.66L, Hemoglobin 10.0L, Hematocrit 32L, Mean Corpuscular Volume 86, Mean Corpuscular Hemoglobin 27, Mean Corpuscular Hemoglobin Concent 32, Red Cell Distribution Width 13.2, Platelet Count 255, Mean Platelet Volume 9.3, Immature Granulocyte % (Auto) 1, Neutrophils (%) (Auto) 64, Lymphocytes (%) (Auto) 26, Monocytes (%) (Auto) 9, Eosinophils (%) (Auto) 1, Basophils (%) (Auto) 0, Neutrophils # (Auto) 4.2, Lymphocytes # (Auto) 1.7, Monocytes # (Auto) 0.6, Eosinophils # (Auto) 0.0, Basophils # (Auto) 0.0, Immature Granulocyte # (Auto) 0.0 11/01/21 05:25: White Blood Count 7.5, Red Blood Count 3.46L, Hemoglobin 9.6L, Hematocrit 30L, Mean Corpuscular Volume 86, Mean Corpuscular Hemoglobin 28, Mean Corpuscular Hemoglobin Concent 32, Red Cell Distribution Width 13.3, Platelet Count 198, Mean Platelet Volume 9.4, Immature Granulocyte % (Auto) 0, Neutrophils (%) (Auto) 68, Lymphocytes (%) (Auto) 22, Monocytes (%) (Auto) 8, Eosinophils (%) (Auto) 2, Basophils (%) (Auto) 1, Neutrophils # (Auto) 5.1, Lymphocytes # (Auto) 1.6, Monocytes # (Auto) 0.6, Eosinophils # (Auto) 0.1, Basophils # (Auto) 0.0, Immature Granulocyte # (Auto) 0.0 TEDDY ROSA APRN Nov 01, 2021 10:14
[2021-11-01] MEDS ORDERED: IBUPROFEN 600 MG (MOTRIN) TAB PO SCH (13:00)
[2021-11-01 13:15] VITALS: BP 110/61
[2021-11-01 15:55] VITALS: BP 110/61
== END 2021-11-01 15:55 | disposition home or self-care (01) | DRG 787 ==
LOC: LDRP 10:05 → WS 14:51
PROVIDERS: ADMIT Obstetrics & Gynecology; ATTEND Obstetrics & Gynecology
PROC: 8E0ZXY6 Isolation (ICD-10-PCS; 2021-10-31)
PROC: 10D00Z1 Extraction of Products of Conception, Low, Open Approach (ICD-10-PCS; principal; 2021-10-31 12:43)
DX: O44.03 Complete placenta previa NOS or without hemorrhage, third trimester (principal); D62 Acute posthemorrhagic anemia; O36.5930 Maternal care for other known or suspected poor fetal growth, third trimester, not applicable or unspecified; O99.824 Streptococcus B carrier state complicating childbirth; O90.81 Anemia of the puerperium; Z37.0 Single live birth; Z3A.36 36 weeks gestation of pregnancy; Z23 Encounter for immunization
CPT/HCPCS: 36415; 85025; 86850; 86900; 86901; 90715